=== PATIENT | male | born 1960 | race Two or more races ===

== ENCOUNTER 2017-02-26 15:23 | Inpatient (IN) | payer OTHER ==
--- NOTE | ~2017-02-26 | DS ---
Unit #: [id number] #: [id number] Patient: ANA LILIA BILLS [id number] [address] [place], [place] [address] [id number] MR#: [id number] NAME: ANA LILIA BILLS ROOM: 339 Age: 56 Sex: M Admission Date: 02/26/2017 : 1960 Discharge Date: 02/28/2017 Attending Physician: Guera Thornton M.D. Primary Care Physician: No Primary Care Physician DISCHARGE SUMMARY PRINCIPAL DIAGNOSES 1. Septic shock secondary to left lower lobe community-acquired pneumonia with gram-negative hamilton. 2. Gram-negative bacteremia with pending identification. 3. Acute hypoxic respiratory failure, resolved. 4. Acute exacerbation of chronic obstructive pulmonary disease. 5. Iron deficiency anemia. 6. Vitamin B12 deficiency with vitamin B12 level of 201. 7. Diabetes mellitus type 2, mildly uncontrolled with hemoglobin A1C of 7.2. 8. Steroid induced hypoglycemia. 9. Obesity. CONSULTANTS None. PROCEDURES 1. Chest x-ray, on February 26, 2017, with low lung volumes and cardiomegaly. There is left greater than right basilar linear density consistent with atelectasis versus infiltrate. CLINICAL HISTORY AND HOSPITAL COURSE Mr. Bills is a very nice, 56-year-old, Zimbabwean-speaking male who presents to the emergency department with increasing shortness of breath. Please refer to H and P for further details. Oxygen saturations were initially normal on room air. Chest x-ray revealed questionable left lower lobe infiltrate. WBC count is elevated at 20,000 and patient had wheezing upon examination. The patient was subsequently admitted. The patient was started on empiric IV fluids in addition to IV antibiotics. He did meet criteria for septic shock but did not have any hypotension. Sputum cultures were not obtained but on empiric azithromycin and Rocephin, the patient had significant clinical improvement. On day of discharge, WBC count is down to 12.2 and I suspect this is still mildly elevated due to IV steroid therapy. Blood cultures, one of two, is growing gram-negative hamilton but due to social issues as outlined below, we are going to discharge home on followup culture tomorrow after discharge. We will also repeat blood cultures prior to discharge. The patient has remained afebrile and clinically looks healthy. The patient was placed on IV steroids due to an associated COPD exacerbation. This has improved and we are going to taper down to oral steroids. Associated hypoxia, which developed following admission, has resolved. Unit #: [id number] #: [id number] Patient: ANA LILIA BILLS The patient also had steroid induced hyperglycemia and leukocytosis. Hemoglobin A1C is also stable at baseline at 7.2. I will note this hemoglobin A1C may be mildly artificially low given patient's iron deficiency and this can be followed up as an outpatient. As noted above, the patient does, today, have new gram-negative hamilton bacteremia, one of two. However, he clinically looks to be very well and I suspect our treatment is effective. The patient has a daughter at home alone, age 15, and he would like to get home to her. After discussing this, I informed him I will discharge him home on antibiotics as outlined above, follow up culture tomorrow and, if abnormal, I will call him at home. DISCHARGE CONDITION Stable. DISCHARGE STATUS Discharged to home. DISCHARGE MEDICATIONS 1. Levaquin 750 mg p.o. daily for another 12 days. 2. Ferrous gluconate 324 mg p.o. b.i.d. with one refill. 3. Prednisone 20 mg tablets two tablets a day for two days, then one tablet for two days, then discontinue. 4. Albuterol inhaler one to two puffs every four hours p.r.n. for shortness of air. 5. Metformin XR 500 mg with breakfast. 6. Vitamin B12 1,000 mcg p.o. daily which can be purchased over the counter. 7. Singulair 10 mg at bedtime. 8. Ibuprofen 800 mg p.o. daily p.r.n. for pain or headache. 9. Please note patient is on Cozaar at home but blood pressures here have been in the 120s off of the medication and I am going to discontinue it. DISCHARGE INSTRUCTIONS 1. The patient was instructed to follow a Heart Healthy, constant carb diet. 2. He can increase his activity as tolerated. 3. He should continue Accu-Cheks as he was doing at home previously. FOLLOWUP Again, I will follow up the patient's blood culture tomorrow and contact the patient if Levaquin is ineffective. He should follow up with his primary care provider in two weeks. Time spent on discharge-47 minutes. Dictated by... Fidelia Larsen/sugar TD: 03/01/2017 08:22 JOB #: [id number] Unit #: [id number] #: [id number] Patient: ANA LILIA BILLS DISCHARGE SUMMARY Page 1 of 1 X Guera Thornton MD X DISCHARGE SUMMARY
--- NOTE | ~2017-02-26 | CR72 ---
[facility] A Service of [facility] RADIOLOGY TEXT RESULTS PATIENT: ANA LILIA BILLS LOCATION: [facility] 339-01 : [birth year] UNIT #: [id number] AGE: [address]: Guera Thornton MD SEX: M ORDER DR: [id number] [facility] [address] [facility]. [place], [place] [address] [id number] MR#: [id number] Acc #: [id number] NAME: ANA LILIA BILLS : 1960 SEX: M STUDY DATE/TIME: 02/26/2017 14:30 UNIT: [facility] ROOM: STUDY DESCRIPTION: CR Chest Single View Portable Attending Physician: Efrain Mayfield M.D. Referring Physician: Amarjit Lester M.D. Ordering Physician: Ed Arnel Mike M.D. Primary Care Physician: No Primary Care Physician MEDICAL IMAGING REPORT This report is preliminary unless electronic signature is present EXAM Portable chest, 1 view. DATE OF EXAM 02/26/2017 COMPARISON None. CLINICAL HISTORY Short of air for 1 day. FINDINGS Low lung volumes and mild cardiomegaly. Mild interstitial prominence and left greater than right basilar linear density, likely atelectasis, less likely infiltrate. Dictated by... Chris Aguirre M.D. THIS IS AN ELECTRONICALLY VERIFIED REPORT Chris Aguirre M.D. at 02/27/2017 9:40 AM MARY/nena TD: 02/26/2017 17:31 JOB #: [id number] MEDICAL IMAGING REPORT Page 1 of 1 COPY
--- NOTE | ~2017-02-26 | HP ---
Unit #: [id number] #: [id number] Patient: ANA LILIA BILLS [id number] [facility]. [place], [place] [address] [id number] MR#: [id number] NAME: ANA LILIA BILLS ROOM: 44514 Age: 56 Sex: M Admission Date: 02/26/2017 : 1960 Attending Physician: Lisa Leon M.D. Primary Care Physician: Primary Care Physician No HISTORY AND PHYSICAL CHIEF COMPLAINT Shortness of air. HISTORY OF PRESENT ILLNESS The patient is a 56-year-old male who is Latvian-speaking only. He refuses a accountant budget phone and prefers that his daughter who is at bedside translate. The patient has had a 2- to 3-day history of increasing shortness of breath and productive cough. He denies any fever or chills. No chest pain. He states that his appetite has been good. He denies any vomiting. He has had one or two loose stools but denies any blood in the stool or black tarry stool. No urinary symptoms. He states that he does have intermittent swelling of his feet but denies any change in his weight. In the emergency department, initial pulse is 128, respirations 24, oxygen saturation was 98% on room air. Chest x-ray shows findings concerning for left lower lobe infiltrate. White blood cell count is 20.3. He was given a gram of Rocephin and 125 mg of Solu-Medrol in the emergency department. He is being admitted to [facility] for evaluation and further treatment. PAST MEDICAL HISTORY 1. Hospitalized approximately one year ago in [place], [place] for a pneumonia (no records). 2. COPD/asthma not on home oxygen and not ever requiring intubation. 3. Diabetes. 4. Diverticular disease. PAST SURGICAL HISTORY 1. Right knee surgery. 2. Colonoscopy in [place] (no records). ALLERGIES No known allergies. HOME MEDICATIONS Include metformin. Home medications will need to be reviewed and verified. SOCIAL HISTORY The patient lives with his . He quit smoking more than 15 years ago. There is no alcohol use. He is not currently working. He walks with a cane. Unit #: [id number] #: [id number] Patient: ANA LILIA BILLS FAMILY HISTORY Notable for his father having some type of malignancy. His mother had hypertension. REVIEW OF SYSTEMS A complete review of systems is negative except as indicated in the HPI. The patient's blood sugars are typically around 200. PHYSICAL EXAMINATION VITAL SIGNS: Temperature 98, pulse 128, respirations 24, blood pressure 132/88, oxygen saturation 98% on room air. GENERAL: The patient is a very pleasant male who is awake and alert in no acute distress. HEENT: Head is atraumatic. Mucous membranes are moist. NECK: Supple. Trachea is midline. LUNGS: Demonstrate scattered wheezes and rhonchi. Breathing is not currently labored with conversation. HEART: Regular rate and rhythm. ABDOMEN: Soft, nontender. Bowel sounds present in all four quadrants. EXTREMITIES: Nontender with no pedal edema. NEUROLOGIC: Patient is awake and alert. He follows commands. PSYCHIATRIC: Mood and affect are normal. Patient is cooperative. SKIN OF EXAMINED AREAS: Warm and dry. DIAGNOSTIC STUDIES LABORATORY: Complete blood count notable for white blood cell count of 20.3, hemoglobin 9.9, hematocrit 33.5, MCV 74.4, RDW 20.6. Comprehensive metabolic panel notable for bicarb of 19, anion gap is 16, glucose 192, ALT 50. BNP 89. D-dimer 414. Troponin less than 0.05. IMAGING: Chest x-ray shows left basilar density. CARDIOVASCULAR: EKG shows sinus tachycardia with premature atrial complexes at a rate of 114 beats per minute. ASSESSMENT The patient is a 56-year-old male with: 1. Pneumonia, community acquired. The patient received Rocephin in the emergency department. 2. Sepsis. 3. Chronic obstructive pulmonary disease exacerbation. The patient received 125 mg of Solu-Medrol in the emergency department. 4. Microcytic anemia. The patient's hemoglobin is 9.9 today with no baseline for comparison. He denies any blood in the stool or black tarry stool. He had a colonoscopy in [place] (no records). 5. Diabetes. 6. History of diverticular disease. 7. Former smoker. PLAN 1. Admit to intermediate level. 2. Healthy-heart consistent carb diet. 3. Normal saline at 125 mL per hour. 4. Blood cultures x2. 5. Sputum culture and sensitivity. 6. Procalcitonin level. 7. Supplemental oxygen 2-4 liters to maintain saturations greater than 92%. Unit #: [id number] #: [id number] Patient: ANA LILIA BILLS 8. Rocephin IV and azithromycin IV for community-acquired pneumonia pending further workup. 9. DuoNeb q.4 h. while awake and q.2 h. p.r.n. 10. Solu-Medrol 80 mg IV q.12 h. 11. Mucinex 600 mg p.o. b.i.d. 12. Serial cardiac enzymes. 13. 2D echo for further evaluation of LV function due to history of pedal edema. 14. Sepsis protocol with STAT lactic acid and repeat. 15. Iron studies, B12 and folate. 16. Hemoccult stool. 17. Hemoglobin A1c. 18. Low-dose sliding scale insulin with Accu-Cheks. 19. Protonix for GI prophylaxis since the patient will be on Solu-Medrol. 20. SCDs for DVT prophylaxis. 21. Repeat labs in the morning. 22. Additional workup and consultants based on above. Dictated by Fidelia Shepard/po TD: 02/26/2017 18:28 JOB #: [id number] HISTORY AND PHYSICAL Page 1 of 1 X Lisa Leon MD X HISTORY AND PHYSICAL
--- NOTE | ~2017-02-26 | EKG ---
PATIENT: ANA LILIA BILLS UNIT #: [id number] Ventricular Rate: 114 BPM Atrial Rate: 114 BPM P-R Interval: 128 ms QRS Duration: 72 ms Q-T Interval: 318 ms QTC Calculation(Bezet): 438 ms P [place]: 17 degrees Calculated R [place]: -7 degrees Calculated T [place]: 6 degrees Diagnosis Line: Sinus tachycardia with Premature atrial complexes Diagnosis Line: Poor R wave progression questionable lead position Diagnosis Line: or body habitus Diagnosis Line: Abnormal ECG Diagnosis Line: No previous ECGs available Diagnosis Line: Confirmed by ANURAG LAND MD ([id number]) on Diagnosis Line: 02/26/2017 10:29:45 PM INTERPRETING MD: GEOFF
[2017-02-26 14:26] LABS: BASOPHIL% 0.1 % (0-2.5); HEMATOCRIT 33.5 % (38.0-50.0); HEMOGLOBIN 9.9 gm/dL (13.0-16.0); LYMPHOCYTE# 0.9 X10e3 (1.0-3.5); LYMPHOCYTE% 4.6 % (17.0-45.0); MEAN CELL VOLUME 74.4 FL (83-96); MEAN CORPUSCULAR HEMOGLOBIN 22.1 PG (28-34); MEAN CORPUSCULAR HGB CONC 29.7 g/dL (30-36); MEAN PLATELET VOLUME 8.9 FL (6.5-11.5); MONOCYTE# 0.9 X10e3 (0-1.0); MONOCYTE% 4.3 % (3.0-12.0); NEUTROPHIL# 18.5 X10e3 (1.5-7.1); PLATELET COUNT 259 X10e3 (140-420); RED BLOOD COUNT 4.51 X10e (3.90-5.60); RED CELL DISTRIBUTION WIDTH 20.6 % (11.0-15.5); WHITE BLOOD COUNT 20.3 X10e3 (4.0-10.5)
[2017-02-26 14:30] LABS: POC - CKMB 3.5 ng/mL (0.0-7.9); POC - TROPONIN <0.05 ng/mL (<=0.05)
[2017-02-26 14:30] LABS: DIFF IND YES
[2017-02-26 14:49] LABS: ALBUMIN SERUM 3.7 g/dL (3.5-5.0); ALKALINE PHOSPHATASE 67 U/L (32-92); AST (SGOT) 28 U/L (10-42); BILIRUBIN,TOTAL 0.5 mg/dL (0.2-2.0); BLOOD UREA NITROGEN 23 mg/dL (9-23); BUN/CREATININE RATIO 28.75; CALCIUM SERUM 9.1 mg/dL (8.4-10.2); CARBON DIOXIDE 19 mmol/L (22-31); CHLORIDE 105 mmol/L (100-111); CREATININE SERUM 0.8 mg/dL (0.6-1.4); GLOM FILT RATE Estimated 99.9 mL/min (>60); GLUCOSE FASTING 192 mg/dL (70-110); POTASSIUM 4.2 mmol/L (3.5-5.1); PROTEIN TOTAL SERUM 6.9 g/dL (6.0-8.3); SODIUM 140 mmol/L (135-145)
[2017-02-26 15:05] LABS: ALT (SGPT) 50 U/L (10-40); BILIRUBIN, DIRECT <0.1 mg/dL (0.0-0.2); BILIRUBIN,INDIRECT 0.4 mg/dL (0.0-0.9)
[2017-02-26 16:07] LABS: MICROCYTOSIS SL; PLATELET ESTIMATE NORMAL (NORMAL); POIKILOCYTOSIS MOD
[2017-02-26 18:14] LABS: INFLUENZA A NEG (NEG); INFLUENZA B NEG (NEG)
[2017-02-26 19:33] LABS: FOLATE (FOLIC ACID) 15.8 ng/mL (>5.8)
[2017-02-26] MEDS ORDERED: COZAAR100 MG PO (20:00)
[2017-02-26] MEDS ORDERED: GLUCOPHAGE XR500 MG PO (20:01)
[2017-02-26] MEDS ORDERED: IBUPROFEN800 MG PO (20:02)
[2017-02-26] MEDS ORDERED: MONTELUKAST SOD10 MG PO (20:03)
[2017-02-26] MEDS ORDERED: PROAIR RESPICL90 MCG INH (20:09)
[2017-02-26 20:28] LABS: CK TOTAL 44 IU/L (36-174)
[2017-02-27 02:42] LABS: HEMOGLOBIN 8.7 gm/dL (13.0-16.0); MEAN CELL VOLUME 74.6 FL (83-96); MEAN CORPUSCULAR HEMOGLOBIN 22.2 PG (28-34); MEAN CORPUSCULAR HGB CONC 29.8 g/dL (30-36); MEAN PLATELET VOLUME 8.9 FL (6.5-11.5); RED BLOOD COUNT 3.89 X10e (3.90-5.60); RED CELL DISTRIBUTION WIDTH 20.2 % (11.0-15.5); WHITE BLOOD COUNT 12.5 X10e3 (4.0-10.5)
[2017-02-27 02:58] LABS: CK TOTAL 54 IU/L (36-174)
[2017-02-27 03:05] LABS: BUN/CREATININE RATIO 22.22; CALCIUM SERUM 8.5 mg/dL (8.4-10.2); CREATININE SERUM 0.9 mg/dL (0.6-1.4); GLOM FILT RATE Estimated 95.1 mL/min (>60); POTASSIUM 3.8 mmol/L (3.5-5.1)
[2017-02-28 06:28] LABS: HEMATOCRIT 29.1 % (38.0-50.0); HEMOGLOBIN 8.5 gm/dL (13.0-16.0); MEAN CELL VOLUME 74.5 FL (83-96); MEAN CORPUSCULAR HEMOGLOBIN 21.8 PG (28-34); MEAN CORPUSCULAR HGB CONC 29.3 g/dL (30-36); MEAN PLATELET VOLUME 8.9 FL (6.5-11.5); RED BLOOD COUNT 3.91 X10e (3.90-5.60); WHITE BLOOD COUNT 12.2 X10e3 (4.0-10.5)
[2017-02-28 07:17] LABS: BUN/CREATININE RATIO 31.25; CALCIUM SERUM 8.6 mg/dL (8.4-10.2); CREATININE SERUM 0.8 mg/dL (0.6-1.4); GLOM FILT RATE Estimated 99.9 mL/min (>60); POTASSIUM 3.6 mmol/L (3.5-5.1)
[2017-02-28] MEDS ORDERED: FERROUS GLUCON324 M1 PO (14:16)
[2017-02-28] MEDS ORDERED: B-121000 MC1 PO (14:16)
[2017-02-28] MEDS ORDERED: DELTASONE20 MG PO (14:17)
[2017-02-28] MEDS ORDERED: LEVAQUIN750 MG PO (14:17)
== END 2017-02-28 16:18 | disposition home or self-care (01) | DRG 871 ==
LOC: CED 15:23 → CEDOF 17:10 → C3A PCU 18:34
PROVIDERS: Emergency Medicine; Family Medicine; Internal Medicine
PROC: 3E0234Z Introduction of Serum, Toxoid and Vaccine into Muscle, Percutaneous Approach (ICD-10-PCS; principal; 2017-02-26)
PROC: B246ZZZ Ultrasonography of Right and Left Heart (ICD-10-PCS; 2017-02-27)
DX: A41.50 Gram-negative sepsis, unspecified (principal); J15.6 Pneumonia due to other Gram-negative bacteria; J96.01 Acute respiratory failure with hypoxia; R65.21 Severe sepsis with septic shock; J44.1 Chronic obstructive pulmonary disease with (acute) exacerbation; J44.0 Chronic obstructive pulmonary disease with (acute) lower respiratory infection; Z23 Encounter for immunization; D50.9 Iron deficiency anemia, unspecified; E53.8 Deficiency of other specified B group vitamins; E11.65 Type 2 diabetes mellitus with hyperglycemia; Z79.84 Long term (current) use of oral hypoglycemic drugs; T38.0X5A Adverse effect of glucocorticoids and synthetic analogues, initial encounter; E66.9 Obesity, unspecified; Z68.36 Body mass index [BMI] 36.0-36.9, adult; D72.829 Elevated white blood cell count, unspecified; J45.909 Unspecified asthma, uncomplicated; Z87.891 Personal history of nicotine dependence
CPT/HCPCS: 71010; 80048; 80076; 82308; 82550; 82553; 82607; 82728; 82746; 82947; 83036; 83540; 83550; 83605; 83880; 84484; 85025; 85027; 85379; 87040; 87077; 87186; 87804; 90732; 93005; 93306; 94640; 94760; 96374; 99285; G0009; J0456; J0696; J1815; J2920; J2930